=== PATIENT | female | born 1985 | race Caucasian/White ===

== ENCOUNTER 2016-10-22 10:44 | Observation (INO) | payer OTHER, BC ==
[~2016-10-22] VITALS: Ht 170.2 cm; Wt 75.9 kg
[2016-10-22 10:30] VITALS: BP 125/68
[~2016-10-22 10:44] MED LIST: IBUP-1222 PO; PREN-2 PO
[2016-10-22] MEDS ORDERED: LACTATED RINGERS 500 ML IVBOLUS ONE (12:30)
[2016-10-22] MEDS ORDERED: PROMETHAZINE 25 MG/ML, 1ML ONE (15:19)
[2016-10-22] MEDS ORDERED: TERBUTALINE 1 MG/ML, 1ML SQ ONE (15:30)
[2016-10-22] MEDS ORDERED: CEFAZOLIN 1,000 MG IV ONE (15:30)
[2016-10-22] MEDS ORDERED: TERBUTALINE 1 MG/ML, 1ML ONE (15:43)
[2016-10-22] MEDS ORDERED: CEFAZOLIN PMX 2GM/50ML 50 ML IVPB ONE (16:00)
[2016-10-22] MEDS ORDERED: ACETAMINOPHEN 325 MG TABLET PO PRN (17:30)
[2016-10-22] MEDS ORDERED: ACETAMINOPHEN 325 MG TABLET ONE ×2 (17:46→17:47)
== END 2016-10-22 18:14 | disposition home or self-care (01) ==
LOC: LDOP 10:44 → LDIP 12:27
PROVIDERS: ADMIT Obstetrics & Gynecology; ATTEND Obstetrics & Gynecology
DX: O26.899 Other specified pregnancy related conditions, unspecified trimester (principal); R10.9 Unspecified abdominal pain; R51 Headache; R42 Dizziness and giddiness; Z3A.00 Weeks of gestation of pregnancy not specified
CPT/HCPCS: 36415; 59025; 81001; 82731; 87081; 87086; 96361; 96365; 96372; G0378; J0690; J3105; J7120; 96360; 96375; 99201; G0463

== ENCOUNTER 2016-12-08 05:11 | Inpatient (IN) | payer OTHER, BC ==
[~2016-12-08] VITALS: Ht 171.4 cm; Wt 80.0 kg
[2016-12-08] MEDS ORDERED: OXYTOCIN 30U/ 0.9% NaCL 500ML 500 ML IV ONE (05:36)
[2016-12-08] MEDS ORDERED: D5%-LACTATED RINGERS 1,000 ML IV SCH (05:36)
[2016-12-08] MEDS ORDERED: FENTANYL PF 100 MCG/2ML IV PRN (06:00)
[2016-12-08] MEDS ORDERED: ONDANSETRON 2MG/ML, 2ML IVPush PRN (06:00)
[2016-12-08] MEDS ORDERED: PLEASE ENTER HEIGHT AND WEIGHT MC SCH (06:00)
[2016-12-08] MEDS ORDERED: CALCIUM CARBONATE 500 MG TAB.CHEW PO PRN (06:00)
[2016-12-08] MEDS ORDERED: FENTANYL PF 100 MCG/2ML IVPush PRN (06:00)
[2016-12-08] MEDS: LACTATED RINGERS 1,000 ML IV SCH ×2 (06:02→07:16)
[2016-12-08 06:09] LABS: HEMATOCRIT 42.6 % (34.6-47.8); HEMOGLOBIN 14.4 g/dL (11.7-16.4)
[2016-12-08] MEDS ORDERED: LIDOCAINE/PF 1.5%-EPI 1:200K, 30ML ONE ×2 (07:46→07:48)
[2016-12-08] MEDS ORDERED: FENTANYL/BUPIV./NS/PF 250 ML EPIDCONT ONE (07:46)
[2016-12-08] MEDS ORDERED: NEWBORN KIT ONE (08:28)
[2016-12-08] MEDS ORDERED: MISOPROSTOL 200 MCG TABLET ONE (08:29)
[2016-12-08] MEDS ORDERED: OXYTOCIN 30U/ 0.9% NaCL 500ML 500 ML ONE ×2 (08:29→11:01)
[2016-12-08] MEDS ORDERED: LIDOCAINE 1%, 20ML ONE (08:38)
[2016-12-08] MEDS ORDERED: OXYTOCIN 30U/ 0.9% NaCL 500ML 500 ML IV PRN (08:43)
[2016-12-08] MEDS ORDERED: LACTATED RINGERS 1,000 ML IV SCH (09:19)
[2016-12-08] MEDS ORDERED: FENTANYL/BUPIV./NS/PF 250 ML EPIDCONT SCH (09:19)
[2016-12-08] MEDS ORDERED: NALOXONE 0.4 MG/ML, 1ML IVPush PRN (09:30)
[2016-12-08] MEDS ORDERED: LACTATED RINGERS 1,000 ML IVBOLUS PRN (09:30)
[2016-12-08] MEDS ORDERED: EPHEDRINE 50 MG/ML, 1ML IVPush PRN (09:30)
[2016-12-08] MEDS ORDERED: OXYTOCIN 30U/ 0.9% NaCL 500ML 500 ML IV SCH (10:11)
[2016-12-08] MEDS ORDERED: ACETAMINOPHEN 325 MG TABLET PO PRN ×2 (10:30)
[2016-12-08] MEDS ORDERED: ONDANSETRON 2MG/ML, 2ML IV PRN (10:30)
[2016-12-08] MEDS ORDERED: MISOPROSTOL 200 MCG TABLET PR PRN (10:30)
[2016-12-08] MEDS ORDERED: METHYLERGONOVINE 0.2 MG/ML IM PRN (10:30)
[2016-12-08] MEDS ORDERED: OXYcodone/APAP 5/325MG TABLET PO PRN (10:30)
[2016-12-08] MEDS ORDERED: DOCUSATE 100 MG CAPSULE PO PRN (10:30)
[2016-12-08] MEDS ORDERED: METOCLOPRAMIDE 5 MG/ML, 2ML IV PRN (10:30)
[2016-12-08 13:00] VITALS: BP 116/72
[2016-12-08] MEDS: IBUPROFEN 600 MG TABLET PO PRN ×2 (15:57→22:22)
[2016-12-08 16:00] VITALS: BP 122/68
[2016-12-08 17:54] LABS: HEMATOCRIT 35.2 % (34.6-47.8); HEMOGLOBIN 11.7 g/dL (11.7-16.4); WHITE BLOOD COUNT 11.7 x10^3/uL (3.4-10)
[2016-12-08 20:00] VITALS: BP 128/83
[2016-12-09 00:20] VITALS: BP 122/79
[2016-12-09] MEDS: IBUPROFEN 600 MG TABLET PO PRN (05:21)
[2016-12-09 07:25] VITALS: BP 131/83
[2016-12-09] MEDS ORDERED: PRENATAL VIT/IRON/FA 1 EACH TABLET PO SCH (09:00)
== END 2016-12-09 11:45 | disposition home or self-care (01) | DRG 775 ==
LOC: CLISVCS 05:11 → LDIP 05:41 → 2NW 13:15
PROVIDERS: ADMIT Obstetrics & Gynecology; ATTEND Obstetrics & Gynecology
PROC: 10E0XZZ Delivery of Products of Conception, External Approach (ICD-10-PCS; principal; 2016-12-08)
PROC: 0HQ9XZZ Repair Perineum Skin, External Approach (ICD-10-PCS; 2016-12-08)
PROC: 3E0S3CZ (ICD-10-PCS; 2016-12-08)
PROC: 00HU33Z Insertion of Infusion Device into Spinal Canal, Percutaneous Approach (ICD-10-PCS; 2016-12-08)
DX: O69.81X0 Labor and delivery complicated by cord around neck, without compression, not applicable or unspecified (principal); O70.0 First degree perineal laceration during delivery; Z3A.39 39 weeks gestation of pregnancy; Z37.0 Single live birth
CPT/HCPCS: 36415; 85025; 86850; 86900; J3490; J2590; J3010; J7120

== ENCOUNTER → 2018-03-14 | Outpatient (CLI) | payer OTHER, BC ==
[~2018-03-14] MED LIST changes: +CHOL10003 PO; +MULT-224 PO; +NORE0.3515 PO
== END | disposition home or self-care (01) ==
LOC: STAR 09:29
PROVIDERS: ATTEND Obstetrics & Gynecology
DX: Z02.9 Encounter for administrative examinations, unspecified (principal)

== ENCOUNTER 2018-03-28 06:35 | Day surgery (SDC) | payer OTHER, BC ==
[~2018-03-28] VITALS: Ht 170.2 cm; Wt 75.6 kg
[2018-03-28] MEDS ORDERED: LACTATED RINGERS 1,000 ML IV SCH (06:52)
[2018-03-28] MEDS ORDERED: GABAPENTIN 300 MG CAPSULE PO ONE (07:00)
[2018-03-28] MEDS ORDERED: ACETAMINOPHEN 500 MG TABLET PO ONE (07:00)
[2018-03-28 07:23] LABS: HCG UR SG 1.024 (1.003-1.030)
[2018-03-28 07:30] VITALS: BP 116/78
[2018-03-28] MEDS ORDERED: ONDANSETRON ODT 8 MG PO ONE (07:30)
[2018-03-28] MEDS ORDERED: SCOPOLAMINE PATCH, 1.5MG PATCH.TD72 TD ONE (07:30)
[2018-03-28] MEDS ORDERED: EPINEPHRINE 1 MG/ML, 1ML ONE (08:24)
[2018-03-28] MEDS ORDERED: SILVER NITRATE STICK TP ONE (08:24)
[2018-03-28] MEDS ORDERED: BUPIVACAINE/PF 0.25% ONE (08:24)
[2018-03-28] MEDS ORDERED: MIDAZOLAM 1 MG/ML, 2ML ONE (08:30)
[2018-03-28] MEDS ORDERED: FENTANYL PF 250 MCG/5ML ONE (08:30)
[2018-03-28] MEDS ORDERED: SUCCINYLCHOLINE 20 MG/ML, 10ML ONE (08:53)
[2018-03-28] MEDS ORDERED: ROCURONIUM 10 MG/ML,10ML ONE (08:53)
[2018-03-28] MEDS ORDERED: DEXAMETHASONE 4 MG/ML, 1ML ONE (08:53)
[2018-03-28] MEDS ORDERED: CEFAZOLIN 1,000 MG ONE (08:53)
[2018-03-28] MEDS ORDERED: PROPOFOL 10 MG/ML, 20ML ONE (08:53)
[2018-03-28] MEDS ORDERED: GLYCOPYRROLATE 0.2MG/1ML, 5ML ONE (08:53)
[2018-03-28] MEDS ORDERED: ONDANSETRON 2MG/ML, 2ML ONE (08:53)
[2018-03-28] MEDS ORDERED: ONDANSETRON 2MG/ML, 2ML IV PRN (09:00)
[2018-03-28] MEDS ORDERED: ONDANSETRON ODT 8 MG PO PRN (09:00)
[2018-03-28] MEDS ORDERED: PROMETHAZINE 12.5 MG SUPP PR PRN (09:00)
[2018-03-28] MEDS ORDERED: DIPHENHYDRAMINE 50 MG/ML, 1ML IVPush PRN (09:00)
[2018-03-28] MEDS ORDERED: PROMETHAZINE 25 MG/ML, 1ML IV PRN (09:00)
[2018-03-28] MEDS ORDERED: PROMETHAZINE 25 MG SUPP PR PRN (09:00)
[2018-03-28] MEDS ORDERED: LABETALOL 5MG/ML, 20ML IV PRN (09:00)
[2018-03-28] MEDS ORDERED: FENTANYL PF 100 MCG/2ML IV PRN (09:00)
[2018-03-28] MEDS ORDERED: EPHEDRINE 50 MG/ML, 1ML IVPush PRN (09:00)
[2018-03-28] MEDS ORDERED: MORPHINE SULFATE 4 MG/ML, 1ML IVPush PRN (09:00)
[2018-03-28] MEDS ORDERED: MIDAZOLAM 1 MG/ML, 2ML IV PRN (09:00)
[2018-03-28] MEDS ORDERED: MEPERIDINE/PF 25MG/0.5ML IVPush PRN (09:00)
[2018-03-28] MEDS ORDERED: EPHEDRINE 50 MG/ML, 1ML IM PRN (09:00)
[2018-03-28] MEDS ORDERED: FENTANYL PF 100 MCG/2ML ONE (10:12)
[2018-03-28] MEDS ORDERED: OXYcodone 5 MG/5 ML ORAL.SOL UDC ONE (10:12)
[2018-03-28] MEDS ORDERED: OXYcodone 5 MG/5 ML ORAL.SOL UDC PO PRN (11:00)
== END 2018-03-28 14:50 | disposition home or self-care (01) ==
LOC: OUT 06:35
PROVIDERS: ATTEND Obstetrics & Gynecology
DX: Z30.2 Encounter for sterilization (principal); N93.8 Other specified abnormal uterine and vaginal bleeding; J45.909 Unspecified asthma, uncomplicated; E03.9 Hypothyroidism, unspecified; F31.9 Bipolar disorder, unspecified; K60.2 Anal fissure, unspecified; Z90.49 Acquired absence of other specified parts of digestive tract; Z88.1 Allergy status to other antibiotic agents; Z98.890 Other specified postprocedural states
CPT/HCPCS: 58563; 58661; 81025; 88302; J0171; J0330; J0690; J1100; J2250; J2405; J2704; J3010; J3490; J7120; Q0162